=== PATIENT | female | born 1995 | race Caucasian/White ===

== ENCOUNTER 2016-04-04 11:25 | Outpatient (CLI) | payer MEDICAID ==
[~2016-04-04] VITALS: Ht 154.9 cm; Wt 60.7 kg
[2016-04-04 11:44] VITALS: BP 119/72; PULSE 98; RESP 18; Ht 154.9 cm; Wt 60.7 kg
[2016-04-04 13:08] LABS: ADD UMIC YES; URINE BILIRUBIN (Dip) NEGATIVE (NEGATIVE); URINE BLOOD (Dip) TRACE (NEGATIVE); URINE COLOR LT. YELLOW (YELLOW); URINE GLUCOSE (Dip) NEGATIVE (NEGATIVE); URINE KETONES (Dip) NEGATIVE (NEGATIVE); URINE LEUKOCYTE ESTERASE (Dip) TRACE (NEGATIVE); URINE NITRITE (Dip) NEGATIVE (NEGATIVE); URINE TOTAL PROTEIN (Dip) NEGATIVE (NEGATIVE); URINE UROBILINOGEN (Dip) 0.2 E.U./dL (0.1-1.0)
[2016-04-04 13:28] LABS: SQUAMOUS EPITHELIAL CELL,UR FEW; URINE RBCS 0-2 /HPF (0)
--- NOTE | 2016-04-04 13:31 | RADRPT ---
PROCEDURE: Limited OB ultrasound CLINICAL INDICATION: Leaking fluid TECHNIQUE: Sonographic evaluation to assess the DEEP was performed. Transabdominal imaging of the gravid uterus was performed. COMPARISON: No prior exam is available for comparison. FINDINGS: There is a single live intrauterine with a heart rate of 156 bpm. position is cephalic. The placenta is posterior. The DEEP measures 7.0 cm. IMPRESSION: The DEEP measures 7.0 cm. RPTAT: HH .Fe Sandoval MD, MD Date Time Electronically viewed and signed by .Fe Sandoval MD, MD on 04/04/2016 13:30 .G/
--- NOTE | 2016-04-04 15:25 | HP ---
Date/Time of Note Date/Time of Note DATE: 04/04/16 TIME: 15:19 OB - History Hx of Present Free Text/Dictation Pt is a 20yo G1 at 33+6 who was sent from clinic for PPROM workup in the setting of DEEP of 9.9cm at the time of an otherwise normal growth U/S. Pt reports leaking a small amount of clear mucousy fluid over the last 3 weeks. States fetus has been moving normally, denies VB or UCs. PROCEDURE: Limited OB ultrasound CLINICAL INDICATION: Leaking fluid TECHNIQUE: Sonographic evaluation to assess the DEEP was performed. Transabdominal imaging of the gravid uterus was performed. COMPARISON: No prior exam is available for comparison. FINDINGS: There is a single live intrauterine with a heart rate of 156 bpm. position is cephalic. The placenta is posterior. The DEEP measures 7.0 cm. IMPRESSION: The DEEP measures 7.0 cm. PROCEDURE: OB ultrasound CLINICAL INDICATION: . OB ultrasound with fluid volume assessment. TECHNIQUE: Sonographic evaluation to assess the amniotic fluid volume was performed. Transabdominal imaging of the gravid uterus was performed. COMPARISON: 04/04/2016 FINDINGS: The amniotic fluid index equals approximately 10.0 cm. heart rate: 171 Beats per minute. Presentation: Cephalic Placenta posterior IMPRESSION: Amniotic fluid index equals 10.0 cm; increased from 6.9 cm Estimated Due Date: May 12, 2016 : 1 Care: Good Care Obstetrical Complications: None Medical Complications: None Past Family/Social History * Past Medical, Surgical, Family and Obstetric Histories reviewed from chart. OB Admission Exam Vital Signs Vital Signs Vital Signs Date Time Temp Pulse Resp B/P Pulse Ox O2 Delivery O2 Flow Rate FiO2 04/04/16 11:44 98.5 98 18 119/72 Room Air Physical Exam Abdomen: WNL (soft, nontender, gravid) Heart Rate: 140's Accelerations: Accelerations Present Decelerations: No Decelerations Varibility: Moderate Contractions on Admission: >10 Minutes Apart (q15 or more min) OB Assessment/Plan Other Assessment: Low normal DEEP, ROM plus negative FWB reassuring contractions Other plan: Pt s/p significant PO hydration with repeat DEEP increased to 10cm from 7cm FWB reassuring, reactive NST Plan to f/up in 2d for repeat NST/DEEP PO hydration encouraged Given rare, asymptomatic UCs, low likelihood UCs represent PTL Strict PTL, PPROM and FKC precautions reviewed Questions answered to patient's satisfaction MOHSEN OWEN MD Apr 04, 2016 15:25
--- NOTE | 2016-04-04 15:26 | RADRPT ---
PROCEDURE: OB ultrasound CLINICAL INDICATION: . OB ultrasound with fluid volume assessment. TECHNIQUE: Sonographic evaluation to assess the amniotic fluid volume was performed. Transabdomin al imaging of the gravid uterus was performed. COMPARISON: 04/04/2016 FINDINGS: The amniotic fluid index equals approximately 10.0 cm. heart rate: 171 Beats per minute. Presentation: Cephalic Placenta posterior IMPRESSION: Amniotic fluid index equals 10.0 cm; increased from 6.9 cm RPTAT: AADD .Danny Lara MD, MD Date Time Electronically viewed and signed by .Danny Lara MD, MD on 04/04/2016 15:25 .B/
--- NOTE | 2016-04-04 15:46 | TRIAGE ---
OB Triage Datetime Report Generated by CPN: 04/04/2016 15:45 Datetime: 04/04/2016 15:30 Stage of : OB Triage Maternal Assessment Level of Consciousness: Fully Conscious Labor Evaluation Frequency: NONE Monitor Mode: External Resting Tone [place]: Relaxed Heart Rate FHR Baseline Rate: 135 Monitor Mode: External US Variability: Moderate 6-25 bpm Accelerations: 15X15 Decelerations: None Pain Assessment Pain Scale: 0 Pain Presence: None/Denies Pain Goal: 3 Vaginal Exam Membrane Status: Intact Vaginal Bleeding: None Datetime: 04/04/2016 14:30 Stage of : OB Triage Maternal Assessment Level of Consciousness: Fully Conscious Labor Evaluation Frequency: NONE Monitor Mode: External Resting Tone [place]: Relaxed Heart Rate FHR Baseline Rate: 135 Monitor Mode: External US Variability: Moderate 6-25 bpm Accelerations: 15X15 Decelerations: None Pain Assessment Pain Scale: 0 Pain Presence: None/Denies Pain Goal: 3 Vaginal Exam Membrane Status: Intact Vaginal Bleeding: None Datetime: 04/04/2016 13:30 Stage of : OB Triage Maternal Assessment Level of Consciousness: Fully Conscious Labor Evaluation Frequency: IRREGUALR Monitor Mode: External Duration (sec)2399: 50-70 Quality: Mild Resting Tone [place]: Relaxed Heart Rate FHR Baseline Rate: 145 Monitor Mode: External US Variability: Moderate 6-25 bpm Accelerations: 15X15 Decelerations: None Pain Assessment Pain Scale: 0 Pain Presence: None/Denies Pain Goal: 3 Vaginal Exam Membrane Status: Intact Vaginal Bleeding: None Datetime: 04/04/2016 12:30 Stage of : OB Triage Maternal Assessment Level of Consciousness: Fully Conscious Labor Evaluation Frequency: 5UC/HR Monitor Mode: External Duration (sec)2399: 50-70 Quality: Mild Resting Tone [place]: Relaxed Heart Rate FHR Baseline Rate: 145 Monitor Mode: External US Variability: Moderate 6-25 bpm Accelerations: 15X15 Decelerations: None Pain Assessment Pain Scale: 0 Pain Presence: None/Denies Pain Goal: 3 Vaginal Exam Membrane Status: Intact Vaginal Bleeding: None Datetime: 04/04/2016 11:41 Assessment Type: Triage Maternal Assessment Level of Consciousness: Fully Conscious DTR's/Clonus: DTRs 2+; No Clonus Headache: Denies Blurred Vision: No Respiratory Effort: Unlabored; Regular Rhythm; Equal Expansion Breath Sounds, Left: Clear and Equal Breath Sounds, Right: Clear and Equal Nausea/Vomiting: Denies RUQ Epigastric Pain: Denies Lower Extremities Edema: None Degree: None Upper Extremities Edema: None Degree: None Facial Edema: None Fall Risk Assessment History of Falling: (0) No Secondary Diagnosis: (0) No Ambulatory Aid: (0) Bedrest/Nurse Assist IV Therapy: (0) No Gait: (0) Normal/Bedrest/Immobile Mental Status: (0) Oriented to Own Ability Fall Score: 0 Fall Risk Score Definition: No Risk: No action required Datetime: 04/04/2016 11:40 EGA: 33.6 Datetime: 04/04/2016 11:39 Time of Arrival: 04/04/2016 11:19 Arrived By: Ambulatory Arrived From: Dr. Oseguera Chief Complaint: SENT FROM CLINIC FOR LOW DEEP. DEEP 9.9CM TODAY AT 33.6 WEEKS EGA Movement: Present Contractions: Denies/Absent Rupture of Membranes: Unsure Vaginal Bleeding: None Vaginal Discharge: Present Recent Sexual Intercouse: Denies Abdominal Trauma: Not Applicable Patient Complaints: None Provider Notified: SHALOM Initial Plan: PO HYDRATION, UA, EFM, DEEP
== END 2016-04-04 15:54 | disposition home or self-care (01) ==
LOC: OBT 11:25 → L-D 11:26 → OBT 15:54
PROVIDERS: ATTEND Obstetrics & Gynecology
DX: O60.03 Preterm labor without delivery, third trimester (principal); O09.293 Supervision of pregnancy with other poor reproductive or obstetric history, third trimester; Z3A.33 33 weeks gestation of pregnancy
CPT/HCPCS: 76815; 76816; 81001; 84112; Z7500; 81003; G0463

== ENCOUNTER 2016-04-07 13:03 | Outpatient (CLI) | payer MEDICAID ==
[~2016-04-07] VITALS: Ht 154.9 cm; Wt 61.1 kg
[2016-04-07 13:06] VITALS: Ht 154.9 cm; Wt 61.1 kg
[2016-04-07 13:15] VITALS: BP 120/68; PULSE 85; RESP 18
--- NOTE | 2016-04-07 13:52 | RADRPT ---
PROCEDURE: OB ultrasound CLINICAL INDICATION: . OB ultrasound with fluid volume assessment. TECHNIQUE: Sonographic evaluation to assess the amniotic fluid volume was performed. Transabdomin al imaging of the gravid uterus was performed. COMPARISON: 04/04/2016 FINDINGS: The amniotic fluid index equals approximately 11.3 cm. heart rate: 149 Beats per minute. Presentation: Cephalic Placenta left lateral IMPRESSION: Amniotic fluid index equals 11.3 cm, increased from prior 10.0. RPTAT: AADD .Danny Lara MD, MD Date Time Electronically viewed and signed by .Danny Lara MD, MD on 04/07/2016 13:52 .B/
--- NOTE | 2016-06-19 22:19 | QN ---
Documentation Comment r/anne-marie 38week cont. GRISEL RAUSCH MD June 19, 2016 22:19
== END 2016-04-07 14:45 | disposition home or self-care (01) ==
LOC: L-D 13:03 → OBT 13:03
PROVIDERS: ATTEND Obstetrics & Gynecology
DX: O26.893 Other specified pregnancy related conditions, third trimester (principal); Z3A.38 38 weeks gestation of pregnancy
CPT/HCPCS: 76816; Z7500; G0463

== ENCOUNTER 2016-04-29 03:17 | Outpatient (CLI) | payer MEDICAID ==
--- NOTE | 2016-04-07 15:09 | CONS ---
Date/Time of Note Date/Time of Note DATE: 04/07/16 TIME: 15:05 Consultation Date/Type/Reason Admit Date/Time April 07, 2016 Triage consult This patient is a 20 years old 1 para 0 who is about 34 weeks and 2 days . She had a history of low DEEP and came in triage service for further evaluation and to be checked regarding this matter. On examination today she is afebrile ear nose throat appear to be normal , abdomen is soft. we cannot detect any contractions, heart tone are fine with good acceleration no deceleration , fairly good variability On ultrasound study amniotic fluid index equals approximately 11.3 cm. heart rate is 149 bpm. Presentation was cephalic and placenta at left lateral position. Initial Consult Date 24 HR Interval Summary Subjective hx not possible: pt non-verbal Constitutional: diaphoresis, No chills, No disoriented, No febrile, No improved, No no complaints, No other, No poor po, No requiring IVF, No requiring O2 Detailed Summary Eyes: No discharge, No no complaints, No other, No pain, No redness, No visual change ENT: No bleeding, No congestion, No discharge, No dysphagia, No no complaints, No other, No pain, No sore throat Respiratory: No cough, No no complaints, No other, No pain, No pleuritic pain, No shortness of breath, No sputum, No wheezing Cardiovascular: No chest pain, No edema, No lightheadedness, No no complaints, No orthopenea, No other, No palpitations, No paroxysmal nocturnal dyspnea Gastrointestinal: No blood, No constipation, No decreased appetite, No diarrhea , No flatus, No nausea, No no complaints, No other, No pain, No passing stool, No vomiting Genitourinary: No bleeding, No discharge, No dysuria, No flank pain, No hematuria, No no complaints, No other Musculoskeletal: No back pain, No bone/joint pain, No neck pain, No no complaints, No other, No restricted range of motion, No swelling Skin: No bruising, No erythema, No laceration, No no complaints, No other, No pruritis, No rash, No skin lesions Lymphatic: No adenopathy, No lymphadema, No no complaints, No other, No tender nodes Psychological: No anxiety, No confusion, No depression, No nl mood/affect, No no complaints, No other, No suicidal Additional Comments With this positive finding and normal amniotic fluid index of 11.3 and considering the fact that the last time was 10 cm in a week earlier was 6.5 patient will be discharged to be followed in her [facility] operator[facility] clinic PRASANNA SANTAMARIA MD Apr 07, 2016 15:09
[~2016-04-29] VITALS: Ht 154.9 cm; Wt 65.5 kg
[2016-04-29 03:21] VITALS: Ht 154.9 cm; Wt 65.5 kg
[2016-04-29 03:30] VITALS: BP 134/93; PULSE 84; RESP 18
[2016-04-29] MEDS ORDERED: ASPI325T4 PO (03:33)
[2016-04-29 03:44] LABS: URINE BLOOD (Dip) POC Trace-intact (NEGATIVE)
[2016-04-29] MEDS ORDERED: ACETAMINOPHEN 325 MG TAB PO ONE (04:00)
[2016-04-29 04:18] LABS: ADD SCAN DIFF NO
[2016-04-29 04:32] LABS: ADD UMIC YES; URINE BILIRUBIN (Dip) NEGATIVE (NEGATIVE); URINE BLOOD (Dip) NEGATIVE (NEGATIVE); URINE COLOR LT. YELLOW (YELLOW); URINE GLUCOSE (Dip) NEGATIVE (NEGATIVE); URINE KETONES (Dip) NEGATIVE (NEGATIVE); URINE LEUKOCYTE ESTERASE (Dip) TRACE (NEGATIVE); URINE NITRITE (Dip) NEGATIVE (NEGATIVE); URINE TOTAL PROTEIN (Dip) NEGATIVE (NEGATIVE); URINE UROBILINOGEN (Dip) 0.2 E.U./dL (0.1-1.0)
[2016-04-29 04:45] LABS: BASOPHILS % 0.2 % (0.0-2.0); EOSINOPHILS # 0.1 10^3/ul (0.0-0.5); EOSINOPHILS % 1.1 % (0.0-7.0); HEMATOCRIT 30.6 % (37.0-47.0); HEMOGLOBIN 9.8 g/dl (12.0-16.0); LYMPHOCYTES # 1.9 10^3/ul (0.8-2.9); LYMPHOCYTES % 21.4 % (18.0-55.0); MEAN CORPUSCULAR HEMOGLOBIN 27.5 pg (29.0-33.0); MEAN CORPUSCULAR VOLUME 85.7 fl (72.0-104.0); MEAN PLATELET VOLUME 10.2 fl (7.4-10.4); MONOCYTE # 0.7 10^3/ul (0.3-0.9); MONOCYTES % 8.1 % (0.0-13.0); NEUTROPHIL # 6.2 10^3/ul (1.6-7.5); NEUTROPHILS % 68.6 % (30.0-74.0); PLATELET COUNT 281 10^3/UL (140-415); RED BLOOD COUNT 3.57 10^6/ul (4.20-5.40); RED CELL DISTRIBUTION WIDTH 13.8 % (11.5-14.5)
[2016-04-29 04:49] LABS: BACTERIA,URINE FEW; SQUAMOUS EPITHELIAL CELL,UR FEW
[2016-04-29 04:58] LABS: INR 0.9; PROTIME 12.1 Sec (12.2-14.2); PT RATIO 0.9
[2016-04-29 04:59] LABS: ALBUMIN 3.4 g/dl (3.3-4.9)
[2016-04-29 05:00] LABS: POTASSIUM 3.6 mmol/L (3.5-5.1)
[2016-04-29 05:02] LABS: ALBUMIN/GLOBULIN RATIO 1.09; BILIRUBIN,INDIRECT 0.8 mg/dl (0-1.1); BILIRUBIN,TOTAL 0.8 mg/dl (0.2-1.3); CALCIUM 8.8 mg/dl (8.4-10.2); CREATININE 0.4 mg/dl (0.44-1.00); TOTAL PROTEIN 6.5 g/dl (6.1-8.1)
--- NOTE | 2016-04-29 05:29 | PN ---
Date/Time of Note Date/Time of Note DATE: 04/29/16 TIME: 05:24 OB Subjective Subjective Subjective 20 yo P0 @ 37.3 wks w headache, now feeling better after tylenol No bleeding or ctx or pain, good FM patient had one moderate BP, when she first came of 134/93; BP's nml since Nml PIH labs OB Objective Objective Objective Abdomen- gravid,n/t VS: 134/93, nml BP's after, 84, 18, 97.9 FHT- Cat I [place]ode[place]- no ctx PIH labs nml Abdomen: WNL Membranes: Intact Accelerations: Accelerations Present Decelerations: No Decelerations Contractions on Admission: None OB Assessment/Plan Other Assessment: 20 yo P0 @ 37 wks, w headache, now feeling better - nml PIH labs - reassuring status Other plan: d/c home PIH precautions ORALIA NEWTON MD Apr 29, 2016 05:28
--- NOTE | 2016-04-29 05:40 | TRIAGE ---
OB Triage Datetime Report Generated by CPN: 04/29/2016 05:40 Datetime: 04/29/2016 05:20 Stage of : OB Triage Labor Evaluation Frequency: 3-6 Monitor Mode: External Duration (sec)2399: 80-160 Quality: Mild Pattern: Normal: <= 5 Contractions in 10 Minutes Resting Tone [place]: Relaxed Heart Rate FHR Baseline Rate: 130 Monitor Mode: External US Variability: Moderate 6-25 bpm Accelerations: 15X15 Decelerations: None Category: Category I Pain Assessment Pain Scale: 5 Pain Presence: Constant Pain Type: Cramping; Ache Pain Location: Abdomen; Head Pain Goal: 5 Pain Relief Measures: Comfort Measures Datetime: 04/29/2016 04:10 Stage of : OB Triage Temperature Route: Oral Labor Evaluation Frequency: 3-6 Monitor Mode: External Duration (sec)2399: 70-140 Quality: Mild Pattern: Normal: <= 5 Contractions in 10 Minutes Resting Tone [place]: Relaxed Heart Rate FHR Baseline Rate: 120 Monitor Mode: External US Variability: Moderate 6-25 bpm Accelerations: 15X15 Decelerations: None Category: Category I Pain Assessment Pain Scale: 10 (Annotations: HEADACHE 10/10, ABD PAIN 5/10) Pain Presence: Constant Pain Type: Cramping; Ache Pain Location: Abdomen; Head Pain Goal: 5 Pain Relief Measures: Pain Medication Given Datetime: 04/29/2016 03:45 Vaginal Exam Dilatation (cms): 1.0 Effacement (%): 60 Station: -3 Exam By: MICHAEL Vaginal Bleeding: None Cervix, Consistency: Soft Cervix, Position: Posterior Datetime: 04/29/2016 03:40 Assessment Type: Triage Maternal Assessment Level of Consciousness: Fully Conscious DTR's/Clonus: DTRs 2+; No Clonus Headache: Denies Blurred Vision: No Respiratory Effort: Unlabored; Regular Rhythm; Equal Expansion Breath Sounds, Left: Clear and Equal Breath Sounds, Right: Clear and Equal Nausea/Vomiting: Denies RUQ Epigastric Pain: Denies Lower Extremities Edema: Bilateral Lower Extremities Degree: None Upper Extremities Edema: None Facial Edema: None Fall Risk Assessment History of Falling: (0) No Secondary Diagnosis: (0) No Ambulatory Aid: (0) Bedrest/Nurse Assist IV Therapy: (0) No Gait: (0) Normal/Bedrest/Immobile Mental Status: (0) Oriented to Own Ability Fall Score: 0 Fall Risk Score Definition: No Risk: No action required Datetime: 04/29/2016 03:38 Time of Arrival: 04/29/2016 03:15 EGA: 37.3 Arrived By: Wheelchair Arrived From: Home Chief Complaint: HEADACHE AND ABD. PAIN Movement: Present Contractions: Occasional Rupture of Membranes: Denies Vaginal Discharge: Denies Additional Patient Complaints: TOOK 1 ASPIRIN AT 0100 Time Provider Notified: 04/29/2016 03:52 Provider Notified: NEWTON Initial Plan: EFM, ASSESSMENT, CALL MD FOR ORDERS Datetime: 04/07/2016 14:27 Labor Evaluation Frequency: 0 Monitor Mode: External Pattern: Normal: <= 5 Contractions in 10 Minutes Resting Tone [place]: Relaxed Contraction Comments: PT. DENIES FEELING ANY UC'S Heart Rate FHR Baseline Rate: 135 Monitor Mode: External US FHR Baseline Changes: No Baseline Change Variability: Moderate 6-25 bpm Accelerations: 15X15 Decelerations: None Category: Category I Pain Presence: None/Denies Datetime: 04/07/2016 14:04 Labor Evaluation Frequency: 0 Monitor Mode: External Pattern: Normal: <= 5 Contractions in 10 Minutes Resting Tone [place]: Relaxed Contraction Comments: PT. DENIES FEELING UC'S Heart Rate FHR Baseline Rate: 135 Monitor Mode: External US Variability: Moderate 6-25 bpm Accelerations: 15X15 Decelerations: None Category: Category I Pain Presence: None/Denies Datetime: 04/07/2016 13:18 Assessment Type: Admission Assessment Maternal Assessment Level of Consciousness: Fully Conscious DTR's/Clonus: DTRs 2+; No Clonus Headache: Denies Blurred Vision: No Respiratory Effort: Unlabored; Regular Rhythm; Equal Expansion Breath Sounds, Left: Clear and Equal Breath Sounds, Right: Clear and Equal Nausea/Vomiting: Denies RUQ Epigastric Pain: Denies Lower Extremities Edema: None Degree: None Upper Extremities Edema: None Degree: None Facial Edema: None Fall Risk Assessment History of Falling: (0) No Secondary Diagnosis: (0) No Ambulatory Aid: (0) Bedrest/Nurse Assist IV Therapy: (0) No Gait: (0) Normal/Bedrest/Immobile Mental Status: (0) Oriented to Own Ability Fall Score: 0 Fall Risk Score Definition: No Risk: No action required Datetime: 04/07/2016 13:13 Stage of : OB Triage Time of Arrival: 04/07/2016 13:01 EGA: 34.2 Arrived By: Ambulatory Arrived From: Home Chief Complaint: PT. HERE FOR REPEAT NST/ DEEP Movement: Present Contractions: Denies/Absent Contractions: 0 Rupture of Membranes: Denies Vaginal Bleeding: None Vaginal Discharge: Denies Recent Sexual Intercouse: Denies Abdominal Trauma: Not Applicable Patient Complaints: None Time Provider Notified: 04/07/2016 14:02 Provider Notified: DR. SANTAMARIA Initial Plan: TOCO/US. DEEP. NST REACTIVE. DEEP-11.3 Contraction Comments: DENIES UC'S Pain Presence: None/Denies Datetime: 04/04/2016 11:41 Fall Score: 0 Fall Risk Score Definition: No Risk: No action required Datetime: 04/04/2016 11:40 EGA: 33.6
== END 2016-04-29 05:30 | disposition home or self-care (01) ==
LOC: OBT 03:17 → L-D 03:18 → OBT 05:30
PROVIDERS: ATTEND Obstetrics & Gynecology
DX: O13.3 Gestational [pregnancy-induced] hypertension without significant proteinuria, third trimester (principal); Z3A.37 37 weeks gestation of pregnancy
CPT/HCPCS: 80053; 81001; 81003; 84560; 85025; 85384; 85610; 85730; Z7610; G0463

== ENCOUNTER 2016-05-04 13:19 | Inpatient (IN) | payer MEDICAID ==
[~2016-05-04] VITALS: Ht 154.9 cm; Wt 64.4 kg
[2016-05-04 13:30] VITALS: Ht 154.9 cm; Wt 64.4 kg
[2016-05-04 13:31] VITALS: BP 121/72; PULSE 79; RESP 18
--- NOTE | 2016-05-04 14:05 | RADRPT ---
PROCEDURE: US biophysical profile. CLINICAL INDICATION: Leaking amniotic fluid. TECHNIQUE: Multiple sonographic images of the uterus were obtained. The images were revi ewed on a PACS workstation. COMPARISON: No prior studies are available for comparison. FINDINGS: There is a single live intrauterine gestation. heart rate is 143 beats per minute. The position is cephalic. The placenta is left lateral grade II with no abruption or previa. The DEEP is 5.2 cm. (Normal = 5-20 cm.) Breathing Movement: 2 Gross Body Movement: 2 Tone: 2 Qualitative Amniotic Fluid Volume: 2 TOTAL: 8 IMPRESSION: 1. The biophysical score is 8/8. RPTAT: QQ .Marcial Krause MD, MD Date Time Electronically viewed and signed by .Marcial Krause MD, on 05/04/2016 14:05 .R/
--- NOTE | 2016-05-04 14:38 | HP ---
Date/Time of Note Date/Time of Note DATE: 05/04/16 TIME: 14:34 OB - History Hx of Present Free Text/Dictation Pt is a 20yo G1 at 38+1 presenting with c/o LOF since 0600. Pt states she awakened with wet pajamas, went to the bathroom and wiped and still felt fluid leaking. Fluid continued to leak on the way to the hospital. Reports normal FM, denies UCs or VB. PROCEDURE: US biophysical profile. CLINICAL INDICATION: Leaking amniotic fluid. TECHNIQUE: Multiple sonographic images of the uterus were obtained. The images were reviewed on a PACS workstation. COMPARISON: No prior studies are available for comparison. FINDINGS: There is a single live intrauterine gestation. heart rate is 143 beats per minute. The position is cephalic. The placenta is left lateral grade II with no abruption or previa. The DEEP is 5.2 cm. (Normal = 5-20 cm.) Breathing Movement: 2 Gross Body Movement: 2 Tone: 2 Qualitative Amniotic Fluid Volume: 2 TOTAL: 8 IMPRESSION: 1. The biophysical score is 8/8. Estimated Due Date: May 12, 2016 : 1 Care: Good Care Obstetrical Complications: None Medical Complications: None Past Family/Social History * Past Medical, Surgical, Family and Obstetric Histories reviewed from chart. Blood Type: O+ Rubella: immune RPR/VDRL: Negative GBS Status: Negative HBsAG: Negative OB Admission Exam Vital Signs Vital Signs Vital Signs Date Time Temp Pulse Resp B/P Pulse Ox O2 Delivery O2 Flow Rate FiO2 05/04/16 13:31 97.4 79 18 121/72 Room Air Physical Exam HEENT: WNL Heart: Rhythm Normal Lungs: Clear Abdomen: WNL Extremities: Normal Cervical Dilatation: None (on SSE) Membranes: Ruptured (presumed) Heart Rate: 130's Accelerations: Accelerations Present Decelerations: No Decelerations Varibility: Moderate Contractions on Admission: >10 Minutes Apart OB Assessment/Plan Other Assessment: Presumed Term PROM Other plan: 1)ID: Afebrile. Presumed ROM at 0600 given low DEEP and weakly positive nitrazine despite negative ROM plus. GBS neg, thus no indication for ppx. 2)Labor: Per Dr. Weaver, will start on low-dose Pitocin 3)FWB: Category 1. CEFM and toco 4)Pain: Meds prn Plan d/w pt and partner. Questions answered to their satisfaction. MOHSEN OWEN MD May 04, 2016 14:38
[2016-05-04] MEDS ORDERED: METHYLERGONOVINE 0.2 MG INJ IM PRN (15:30)
[2016-05-04] MEDS ORDERED: MISOPROSTOL 200 MCG TAB PR PRN (15:30)
[2016-05-04] MEDS ORDERED: CARBOPROST 250 MCG INJ IM PRN (15:30)
[2016-05-04] MEDS ORDERED: LIDOCAINE 1% (MPF) 30 ML INJ INJ PRN (15:30)
[2016-05-04] MEDS ORDERED: OXYTOCIN 30 UNITS/LR 500 ML IV PRN (15:30)
[2016-05-04] MEDS ORDERED: IBUPROFEN 600 MG TAB PO PRN (15:30)
[2016-05-04] MEDS ORDERED: BUTORPHANOL 2 MG INJ IV PRN (15:30)
[2016-05-04] MEDS ORDERED: OXYTOCIN 30 UNITS/LR 500 ML IV SCH ×3 (15:30)
[2016-05-04] MEDS ORDERED: LACTATED RINGER'S 1,000 ML IV PRN (15:30)
[2016-05-04] MEDS: LACTATED RINGER'S 1,000 ML IV SCH ×2 (15:45→20:44)
[2016-05-04 15:56] LABS: ADD SCAN DIFF NO
[2016-05-04 15:58] LABS: BASOPHILS % 0.2 % (0.0-2.0); EOSINOPHILS # 0.1 10^3/ul (0.0-0.5); EOSINOPHILS % 0.5 % (0.0-7.0); HEMATOCRIT 33.8 % (37.0-47.0); LYMPHOCYTES # 1.9 10^3/ul (0.8-2.9); LYMPHOCYTES % 16.5 % (18.0-55.0); MEAN CORPUSCULAR HEMOGLOBIN 27.9 pg (29.0-33.0); MEAN CORPUSCULAR HGB CONC 32.5 g/dl (32.0-37.0); MEAN CORPUSCULAR VOLUME 85.8 fl (72.0-104.0); MEAN PLATELET VOLUME 10.3 fl (7.4-10.4); MONOCYTE # 0.7 10^3/ul (0.3-0.9); MONOCYTES % 6.4 % (0.0-13.0); NEUTROPHIL # 8.7 10^3/ul (1.6-7.5); PLATELET COUNT 326 10^3/UL (140-415); RED BLOOD COUNT 3.94 10^6/ul (4.20-5.40); RED CELL DISTRIBUTION WIDTH 14.1 % (11.5-14.5); WHITE BLOOD COUNT 11.4 10^3/ul (4.8-10.8)
[2016-05-04 16:14] LABS: INR 0.88; PROTIME 11.9 Sec (12.2-14.2); PT RATIO 0.9
[2016-05-04 16:15] LABS: PARTIAL THROMBOPLASTIN TIME 29.1 Sec (25.0-35.0)
[2016-05-04] MEDS ORDERED: PENICILLIN G K 5,000,000 UNITS in DEXTROSE 5% 100 ML IVPB ONE (21:00)
[2016-05-05] MEDS: PENICILLIN G K 2,500,000 UNITS in DEXTROSE 5% 50 ML IVPB SCH ×3 (02:04→10:00)
[2016-05-05] MEDS ORDERED: FENTAnyl 2MCG/ML-ROPIV 0.2% 100 ML ONE (05:34)
[2016-05-05] MEDS ORDERED: NALOXONE (0.4 MG/ML) INJ IV PRN (07:30)
[2016-05-05] MEDS ORDERED: KETOROLAC 30 MG INJ IV PRN (07:30)
[2016-05-05] MEDS ORDERED: ONDANSETRON 4 MG INJ IV PRN ×2 (07:30→13:30)
[2016-05-05] MEDS ORDERED: HYDROmorphONE 1 MG/ML SYG IV PRN ×2 (07:30)
[2016-05-05] MEDS ORDERED: FENTAnyl 2MCG/ML-ROPIV 0.2% 100 ML BAG EPI SCH (07:30)
[2016-05-05] MEDS: LACTATED RINGER'S 1,000 ML IV SCH (08:49)
--- NOTE | 2016-05-05 11:54 | LDN ---
Date/Time of Note Date/Time of Note DATE: 05/05/16 TIME: 11:50 Delivery Summary Normal spontaneous vaginal delivery of a baby boy from OA position shoulders delivered without any difficulty rest of the baby's body followed cord clamped after stopped pulsation placenta spontaneous expulsion inspected complete blood loss 2 50 cc patient assist small first-degree perineal laceration repaired with 3-0 chromic catgut Weeks of Gestation 38 weeks 1 day Placenta Delivered: Spontaneously Meconium: none Episiotomy: No Estimated blood loss: 250 Sponge & Needle done & correct: Yes All needle counts correct: Yes Any foreign bodies felt in the: No Problems: Delivery Information Sex Sex: male Apgars 1 Minute: 9 5 Minute: 9 Suctioning Nose & mouth suctioned at merced: Yes Delee suction performed: No Umbilical Cord Umbilical cord with: 3 Vessels Cord presentations: no nuchal cord Cord Blood was obtained: Yes GRISEL RAUSCH MD May 05, 2016 11:53
--- NOTE | 2016-05-05 12:15 | RADRPT ---
PROCEDURE: XR Abdomen Upright CLINICAL INDICATION: Less sharp needle TECHNIQUE: An AP upright radiograph of the abdomen was submitted COMPARISON: None FINDINGS: There is increased soft tissue density extending superiorly from the pelvis compatible with a postpa rtum uterus. The bowel is displaced superiorly and the bowel gas pattern reflects an ileus. No pathological calcification is evident. There is a linear density projecting through the superior lumbar spine extending inferiorly to the l evel of superior L4. This possibly represents a redundant epidural catheter. No other radiopaque f oreign body is identified. The osseous structures appear intact. IMPRESSION: 1. A somewhat serpiginous linear density projects to the lumbar spine extending inferiorly to the l evel of superior L4 possibly representing a redundant epidural catheter. No other radiopaque foreig n body is identified. 2. Enlarged uterus. 3. The bowel gas pattern reflects a mild ileus. Physician Robina Date Time Electronically viewed and signed by Physician Robina on 05/05/2016 12:15 /
[2016-05-05] MEDS ORDERED: CEFAZOLIN 2 GM/50 ML (PMX) 50 ML IVPB ONE (12:26)
[2016-05-05 13:15] VITALS: BP 132/74; PULSE 69; RESP 18
[2016-05-05] MEDS ORDERED: ACETAMINOPHEN/CODEINE #3 TAB PO PRN ×2 (13:30)
[2016-05-05] MEDS ORDERED: ACETAMINOPHEN 325 MG TAB PO PRN (13:30)
[2016-05-05] MEDS ORDERED: WITCH HAZEL/GLYCERIN PAD PR PRN (13:30)
[2016-05-05] MEDS ORDERED: DIBUCAINE 1% 30 GM OINT PR PRN (13:30)
[2016-05-05] MEDS ORDERED: OXYCODONE/ASPIRIN (4.88/325) TAB PO PRN (13:30)
[2016-05-05] MEDS: OXYCODONE/ASPIRIN (4.88/325) TAB PO PRN (13:56)
[2016-05-05] MEDS: BENZOCAINE 20% 56 ML SPRAY TOP PRN (13:56)
[2016-05-05] MEDS: LANOLIN 7 GM TUBE TOP PRN (13:56)
[2016-05-05] MEDS: OXYTOCIN 30 UNITS/LR 500 ML IV SCH ×3 (15:47→19:56)
[2016-05-05 16:00] VITALS: BP 122/67; PULSE 86; RESP 18
[2016-05-05] MEDS: IBUPROFEN 600 MG TAB PO SCH ×2 (18:09→23:35)
[2016-05-05 19:45] VITALS: BP 103/59; PULSE 72; RESP 19
[2016-05-05] MEDS: SENNA/DOCUSATE NA (8.6MG/50MG) TAB PO SCH (20:53)
[2016-05-06 00:25] VITALS: BP 113/62; PULSE 79; RESP 18
[2016-05-06] MEDS: OXYCODONE/ASPIRIN (4.88/325) TAB PO PRN (00:25)
[2016-05-06 04:15] VITALS: BP 110/53; PULSE 86; RESP 19
[2016-05-06] MEDS: IBUPROFEN 600 MG TAB PO SCH ×4 (05:44→23:34)
[2016-05-06 07:09] LABS: ADD SCAN DIFF NO
[2016-05-06 07:18] LABS: ABNORMAL IP MESSAGE 1; BASOPHILS % 0.2 % (0.0-2.0); EOSINOPHILS # 0.1 10^3/ul (0.0-0.5); EOSINOPHILS % 0.9 % (0.0-7.0); LYMPHOCYTES % 15.5 % (18.0-55.0); MEAN CORPUSCULAR HEMOGLOBIN 27.5 pg (29.0-33.0); MEAN CORPUSCULAR HGB CONC 31.4 g/dl (32.0-37.0); MEAN CORPUSCULAR VOLUME 87.6 fl (72.0-104.0); MEAN PLATELET VOLUME 10.9 fl (7.4-10.4); MONOCYTES % 7.6 % (0.0-13.0); NEUTROPHIL # 9.7 10^3/ul (1.6-7.5); NEUTROPHILS % 75.3 % (30.0-74.0); PLATELET COUNT 221 10^3/UL (140-415); RED BLOOD COUNT 2.51 10^6/ul (4.20-5.40); RED CELL DISTRIBUTION WIDTH 14.5 % (11.5-14.5); WHITE BLOOD COUNT 12.9 10^3/ul (4.8-10.8)
[2016-05-06 07:25] LABS: HEMOGLOBIN 6.9 g/dl (12.0-16.0)
[2016-05-06 08:20] VITALS: BP 105/45; PULSE 72; RESP 17
[2016-05-06] MEDS: SENNA/DOCUSATE NA (8.6MG/50MG) TAB PO SCH ×2 (09:37→21:22)
--- NOTE | 2016-05-06 10:19 | QN ---
Documentation Comment PPD#1 is stable afebrile tolerates diet No VB +BM +voidsAsymptomatic no sign of depression VS Stable Hb 6.9 Gen NAD Abd soft NT ND Genitalia No blood at perinium --->Discharge plan tomorrow --->Repeat CBC at 2 PM DRE DELA CRUZ M.D. May 06, 2016 10:19
[2016-05-06] MEDS: FERROUS SULFATE (EC) 325 MG TAB PO SCH ×2 (12:51→21:22)
[2016-05-06 14:12] LABS: ADD SCAN DIFF NO
[2016-05-06 14:15] LABS: BASOPHILS % 0.1 % (0.0-2.0); EOSINOPHILS # 0.1 10^3/ul (0.0-0.5); EOSINOPHILS % 0.8 % (0.0-7.0); HEMATOCRIT 24.4 % (37.0-47.0); HEMOGLOBIN 7.8 g/dl (12.0-16.0); LYMPHOCYTES # 1.8 10^3/ul (0.8-2.9); LYMPHOCYTES % 12.6 % (18.0-55.0); MEAN CORPUSCULAR HEMOGLOBIN 27.9 pg (29.0-33.0); MEAN CORPUSCULAR VOLUME 87.1 fl (72.0-104.0); MEAN PLATELET VOLUME 9.7 fl (7.4-10.4); MONOCYTE # 0.8 10^3/ul (0.3-0.9); MONOCYTES % 5.4 % (0.0-13.0); NEUTROPHIL # 11.3 10^3/ul (1.6-7.5); NEUTROPHILS % 80.7 % (30.0-74.0); PLATELET COUNT 272 10^3/UL (140-415); RED CELL DISTRIBUTION WIDTH 14.4 % (11.5-14.5)
[2016-05-06 16:16] VITALS: BP 132/73; PULSE 98; RESP 16
[2016-05-06 19:45] VITALS: BP 125/68; PULSE 97; RESP 19
[2016-05-07 03:10] VITALS: BP 115/58; PULSE 83; RESP 19
[2016-05-07] MEDS: IBUPROFEN 600 MG TAB PO SCH ×2 (05:34→11:57)
[2016-05-07 07:45] VITALS: BP 118/59; PULSE 81; RESP 16
[2016-05-07] MEDS: FERROUS SULFATE (EC) 325 MG TAB PO SCH ×2 (08:51→12:57)
[2016-05-07] MEDS: SENNA/DOCUSATE NA (8.6MG/50MG) TAB PO SCH (08:51)
[2016-05-07] MEDS ORDERED: MEASLES,MUMPS,RUBELLA VACCINE INJ SC* ONE (09:00)
--- NOTE | 2016-05-07 09:13 | PD.PPDC ---
[employer] Discharge Instruction Condition Patient Condition: Good Diet Diet: Resume Regular Diet Activity/Restrictions Activity: Normal Activity May Shower Follow-up Follow-up with Physician: 2, Week/Weeks Return to clinic for MANAGEMENT SPECIALIST Instructions: Fever greater than 101 Worsening abdominal pain More than 2 pads per hour OB Instructions: Breast Tenderness Headache GRISEL RAUSCH MD May 07, 2016 09:13
--- NOTE | 2016-05-07 09:17 | DS ---
Date/Time of Note Date/Time of Note DATE: 05/07/16 TIME: 09:15 Obstetrical Discharge Record Final Diagnosis Final Diagnosis: Term delivered Vaginal Delivery Obstetrical Delivery: Spontaneous Condition on Discharge Physical Assessment Last Vitals: Post normal vaginal delivery day 2 Afebrile abdomen soft uterus firm lochia normal extremity normal patient discharged home with instructions recommended appointment with the clinic in 2 weeks Laboratory Tests Test 05/06/16 13:55 White Blood Count 14.010^3/ul Red Blood Count 2.8010^6/ul Hemoglobin 7.8g/dl Hematocrit 24.4% Mean Corpuscular Volume 87.1fl Mean Corpuscular Hemoglobin 27.9pg Mean Corpuscular Hemoglobin Concent 32.0g/dl Red Cell Distribution Width 14.4% Platelet Count 71185^3/UL Mean Platelet Volume 9.7fl Neutrophils % 80.7% Lymphocytes % 12.6% Monocytes % 5.4% Eosinophils % 0.8% Basophils % 0.1% Nucleated Red Blood Cells % 0.0/100WBC Neutrophils # 11.310^3/ul Lymphocytes # 1.810^3/ul Monocytes # 0.810^3/ul Eosinophils # 0.110^3/ul Basophils # 0.010^3/ul Nucleated Red Blood Cells # 0.010^3/ul Current Medications Medications (Trade) Dose Ordered Sig/Alexandr Route PRN Reason Start Time Stop Time Status Last Admin Dose Admin Lactated Ringer's 1,000 ml @ 125 mls/hr Q8H IV 05/04/16 15:20 05/05/16 13:11 DC 05/05/16 08:49 Oxytocin/Lactated Ringer's 500 ml @ 0 mls/hr TITRATE IV 05/04/16 15:30 05/05/16 13:11 DC 05/04/16 16:44 Butorphanol Tartrate (Stadol) 2 mg Q2H PRN IV PAIN 05/04/16 15:30 05/05/16 13:11 DC 05/05/16 03:38 Lidocaine 30 ml 30 ml ONCE PRN INJ EPISIOTOMY/TEARING 05/04/16 15:30 05/05/16 13:11 DC Oxytocin/Lactated Ringer's 500 ml @ 125 mls/hr ONCE -MAY REPEAT X1 IV 05/04/16 15:30 05/05/16 13:11 DC Oxytocin/Lactated Ringer's 500 ml @ 125 mls/hr ONCE IV 05/04/16 15:30 05/05/16 13:11 DC 05/05/16 11:30 Ibuprofen 600 mg 600 mg ONCE PRN PO Mild Pain (Pain Score 1-3) 05/04/16 15:30 05/05/16 13:11 DC Lactated Ringer's 1,000 ml @ 2,000 mls/hr Q30M PRN IV PRE-EPIDURAL BOLUS 05/04/16 15:30 05/05/16 13:11 DC 05/05/16 04:50 Oxytocin/Lactated Ringer's 500 ml @ 0 mls/hr ONCE PRN IV For Hemorrhage Management 05/04/16 15:30 05/05/16 13:11 DC Methylergonovine Maleate (Methergine) 0.2 mg ONCE PRN IM VAGINAL BLEEDING 05/04/16 15:30 05/05/16 13:11 DC 05/05/16 11:27 Carboprost Tromethamine (Hemabate) 250 mcg ONCE PRN IM VAGINAL BLEEDING 05/04/16 15:30 05/05/16 13:11 DC Misoprostol 1000 mcg 1,000 mcg ONCE PRN FL VAGINAL BLEEDING 05/04/16 15:30 05/05/16 13:11 DC Penicillin G Potassium 2567429 units/Dextrose 100 ml @ 200 mls/hr ONCE ONCE IVPB 05/04/16 21:00 05/04/16 21:29 DC 05/04/16 22:24 Penicillin G Potassium 4634646 units/Dextrose 50 ml @ 100 mls/hr Q4 IVPB 05/05/16 01:00 05/05/16 13:11 DC 05/05/16 10:00 Fentanyl/ Ropivacaine 100 ml @ ud STK-MED ONCE .ROUTE 05/05/16 05:34 05/05/16 05:35 DC Naloxone HCl (Narcan) 0.1 mg Q2M PRN IV FOR RESP RATE 8 OR LESS 05/05/16 07:30 05/05/16 13:11 DC Ketorolac Tromethamine (Toradol) 30 mg Q6H PRN IV PAIN 05/05/16 07:30 05/05/16 13:11 DC Hydromorphone HCl (Dilaudid) 0.2 mg Q3H PRN IV PAIN LEVEL 1-5 05/05/16 07:30 05/05/16 13:11 DC Hydromorphone HCl (Dilaudid) 0.4 mg Q3H PRN IV PAIN LEVEL 6-10 05/05/16 07:30 05/05/16 13:11 DC Ondansetron HCl (Zofran Inj) 4 mg Q6H PRN IV NAUSEA AND/OR VOMITING 05/05/16 07:30 05/05/16 13:11 DC 05/05/16 08:43 Fentanyl/ Ropivacaine 100 ml 100 ml EPIDURAL INFUSION EPI 05/05/16 07:30 05/05/16 13:11 DC Cefazolin Sodium/ Dextrose 50 ml @ ud STK-MED ONCE IVPB 05/05/16 12:26 05/05/16 12:27 DC Oxytocin/Lactated Ringer's 500 ml @ 125 mls/hr Q4H IV 05/05/16 13:07 05/05/16 21:06 DC 05/05/16 19:56 Ibuprofen (Motrin) 600 mg Q6 PO 05/05/16 18:00 05/07/16 05:34 Acetaminophen (Tylenol Tab) 650 mg Q4H PRN PO PAIN LEVEL 1-5 05/05/16 13:30 Acetaminophen/ Codeine Phosphate (Tylenol No.3) 1 tab Q4H PRN PO PAIN LEVEL 1-5 05/05/16 13:30 Acetaminophen/ Codeine Phosphate (Tylenol No.3) 2 tab Q4H PRN PO PAIN LEVEL 6-10 05/05/16 13:30 Oxycodone/Aspirin (Percodan) 1 tab Q3H PRN PO PAIN LEVEL 1-5 05/05/16 13:30 Oxycodone/Aspirin (Percodan) 2 tab Q3H PRN PO PAIN LEVEL 6-10 05/05/16 13:30 05/06/16 00:25 Ondansetron HCl (Zofran Inj) 4 mg Q6H PRN IV NAUSEA AND/OR VOMITING 05/05/16 13:30 Senna/Docusate Sodium (Senokot-S) 1 tab BID PO 05/05/16 21:00 05/07/16 08:51 Witch Adela/ Glycerin (Tucks Pads) 1 pad BEDSIDE MEDICATION PRN FL HEMORRHOID/EPISIOTMY PAIN 05/05/16 13:30 05/05/16 13:56 Benzocaine (Dermoplast Bicknell) 1 spray BEDSIDE MEDICATION PRN TOP HEMORRHOID/EPISIOTMY PAIN 05/05/16 13:30 05/05/16 13:56 Dibucaine (Nupercainal) 1 applic BEDSIDE MEDICATION PRN FL HEMORRHOID/EPISIOTMY PAIN 05/05/16 13:30 Lanolin (Hui-E-Jtyzhg) 1 applic BEDSIDE MEDICATION PRN TOP BEDSIDE FOR ARTI TO NIPPLES 05/05/16 13:30 05/05/16 13:56 Measles/Mumps/ Rubella Vaccine Live (Mmr Ii Vaccine) 0.5 ml ONCE ONCE SC* 05/07/16 09:00 05/07/16 09:01 DC Ferrous Sulfate (Ferrous Sulfate (Ec)) 325 mg TID PO 05/06/16 13:00 05/07/16 08:51 Voiding: Yes Bowel Movement: Yes Breast: Soft, non-tender, Filling Fundus: Firm Calf Tenderness: No Patient Condition: Good GRISEL RAUSCH MD May 07, 2016 09:16
[2016-05-07] MEDS: LANOLIN 7 GM TUBE TOP PRN (12:02)
[2016-05-07] MEDS: BENZOCAINE 20% 56 ML SPRAY TOP PRN (16:12)
== END 2016-05-07 16:20 | disposition home or self-care (01) | DRG 775 ==
LOC: OBT 13:19 → L-D 13:20 → OBT 15:15 → L-D 15:15 → PP1 05-05 13:16
PROVIDERS: ADMIT Obstetrics & Gynecology; ATTEND Obstetrics & Gynecology
PROC: 10E0XZZ Delivery of Products of Conception, External Approach (ICD-10-PCS; principal; 2016-05-05)
PROC: 0HQ9XZZ Repair Perineum Skin, External Approach (ICD-10-PCS; 2016-05-05)
DX: O70.0 First degree perineal laceration during delivery (principal); Z37.0 Single live birth; Z3A.38 38 weeks gestation of pregnancy
CPT/HCPCS: 62319; 74000; 76818; 84112; 85025; 85610; 85730; 86592; 86900; 86901; 87340; A4310; G0463; J0690; J2210; J2405; J2590; J3010; J7120